=== PATIENT | male | born 1975 | race Caucasian/White ===

== ENCOUNTER 2018-12-17 16:37 | Inpatient (IN) | payer BC ==
[~2018-12-17] VITALS: Ht 188 cm; Wt 118.5 kg
[2018-12-17 17:36] LABS: BASOPHILS % (AUTO) 0.6 % (0.0-2.0); EOSINOPHILS % (AUTO) 4.2 % (1.0-6.0); HEMATOCRIT 45.5 % (41-53); HEMOGLOBIN 15.2 g/dL (13.5-17.5); LYMPHOCYTES # (AUTO) 2.5 K/uL (1.0-4.8); LYMPHOCYTES % (AUTO) 32.9 % (22.0-44.0); MEAN CORPUSCULAR HEMOGLOBIN 31.7 pg (26.0-34.0); MEAN CORPUSCULAR HGB CONC 33.4 G/dL (31.0-37.0); MEAN CORPUSCULAR VOLUME 95 fL (80-100); MONOCYTES # (AUTO) 0.8 K/uL (0.1-1.0); MONOCYTES % (AUTO) 10.2 % (2.0-9.0); NEUTROPHILS # (AUTO) 3.9 K/uL (1.8-7.7); NEUTROPHILS % (AUTO) 52.1 % (40.0-70.0); PLATELET COUNT (AUTO) 216 K/uL (150-450); RED BLOOD CELL COUNT(AUTO) 4.78 MIL/uL (4.50-5.90); RED CELL DISTRIBUTION WIDTH 12.7 % (11.5-14.5)
[2018-12-17 17:45] LABS: ANION GAP 7 mmol/L (8-16); CALCIUM, TOTAL 9.2 mg/dL (8.8-10.5); CARBON DIOXIDE 27 mmol/L (22-29); CHLORIDE 106 mmol/L (98-107); CREATININE 0.86 mg/dL (0.60-1.30); GLOMERULAR FILTR. RATE CALC > 60 mL/min (>60); GLUCOSE,RANDOM 95 mg/dL (70-110); POTASSIUM 4.1 mmol/L (3.5-5.1); SODIUM SERUM 140 mmol/L (136-145); UREA NITROGEN, BLOOD 13 mg/dL (7-18)
[2018-12-17 17:51] LABS: ALANINE AMINOTRANSFERASE 69 U/L (12-78); ALBUMIN 4.2 g/dL (3.4-5.0); ALKALINE PHOSPHATASE 65 U/L (46-116); ASPARTATE AMINOTRANSFERASE 28 U/L (15-37); BILIRUBIN,TOTAL 0.3 mg/dL (0.1-1.0)
[2018-12-17 18:09] LABS: PROTHROMBIN TIME 10.2 SEC (9.4-11.6)
[2018-12-17] MEDS ORDERED: IOVERSOL 320 MG/ML 100 ML VIAL ONE (18:40)
[2018-12-17] MEDS ORDERED: SODIUM CHLORIDE 0.9% 100 ML ONE (18:40)
[2018-12-17] MEDS ORDERED: ONDANSETRON HCL 4 MG/2 ML VIAL IVP PRN ×2 (21:00→22:45)
[2018-12-17] MEDS ORDERED: 0.9% SODIUM CHLORIDE 10 ML SYRINGE IVP PRN ×2 (21:00→22:45)
[2018-12-17] MEDS ORDERED: ACETAMINOPHEN 325 MG TABLET PO PRN ×2 (21:00→22:45)
[2018-12-17] MEDS ORDERED: ZOLPIDEM TARTRATE 5 MG TABLET PO PRN (22:45)
[2018-12-17] MEDS ORDERED: POTASSIUM CHL 10 MEQ/WATER 50 ML IV PRN (22:45)
[2018-12-17] MEDS ORDERED: MAGNESIUM SULFATE 2 GM/WATER 50 ML IV PRN (22:45)
[2018-12-17] MEDS ORDERED: MAGNESIUM SULFATE 4 GM/WATER 100 ML IV PRN (22:45)
[2018-12-17] MEDS ORDERED: SODIUM CHLORIDE 0.9% 1,000 ML IV ONE (22:45)
[2018-12-17] MEDS ORDERED: MAGNESIUM OXIDE 400 MG TABLET PO PRN (22:45)
[2018-12-17] MEDS ORDERED: POTASSIUM CHLORIDE 20 MEQ ER TABLET PO PRN (22:45)
[2018-12-18 04:29] VITALS: BP 132/72
[2018-12-18 07:57] VITALS: BP 109/64
[2018-12-18 11:34] VITALS: BP 116/70
[2018-12-18] MEDS: PANTOPRAZOLE SODIUM 40 MG DR TABLET PO SCH (12:18)
[2018-12-18] MEDS: DOCUSATE SODIUM 100 MG CAPSULE PO SCH ×2 (12:18→20:29)
[2018-12-18] MEDS: ATORVASTATIN CALCIUM 20 MG TABLET PO SCH (14:40)
[2018-12-18] MEDS: HYPROMELLOSE 0.5% 15 ML OPHTHALMIC SOLUTION OU SCH ×3 (14:40→20:29)
[2018-12-18] MEDS: ASPIRIN 81 MG CHEWABLE TABLET PO SCH (14:40)
[2018-12-18] MEDS: ACYCLOVIR 800 MG TABLET PO SCH ×2 (14:40→20:29)
[2018-12-18] MEDS: PredniSONE 20 MG TABLET PO SCH (16:20)
[2018-12-18 18:28] LABS: APPEARANCE,URINE CLEAR (CLEAR); BILIRUBIN,URINE NEGATIVE (NEGATIVE); GLUCOSE, URINE (UA) NEGATIVE (NEGATIVE); KETONES,URINE NEGATIVE (NEGATIVE); LEUKOCYTE ESTERASE ,URINE NEGATIVE (NEGATIVE); NITRATE,URINE NEGATIVE (NEGATIVE); OCCULT BLOOD,URINE NEGATIVE (NEGATIVE); PROTEIN,URINE NEGATIVE (NEGATIVE); UROBILINOGEN,URINE 0.2 mg/dL (<=1.0)
[2018-12-18 18:30] LABS: AMPHET/METH SCREEN,URINE NEGATIVE (NEGATIVE); BARBITURATE SCREEN, URINE NEGATIVE (NEGATIVE); BENZODIAZEPINES SCREEN,URINE NEGATIVE (NEGATIVE); CANNABINOID SCREEN,URINE NEGATIVE (NEGATIVE); COCAINE SCREEN,URINE NEGATIVE (NEGATIVE); METHADONE SCREEN, URINE NEGATIVE (NEGATIVE); OPIATE SCREEN,URINE NEGATIVE (NEGATIVE)
[2018-12-18 18:33] LABS: PHENCYCLIDINE SCREEN,URINE NEGATIVE (NEGATIVE)
[2018-12-18 18:41] LABS: BACTERIA,URINE None Seen /HPF (None Seen); RBC,URINE None Seen /HPF (0-2); SQUAMOUS EPITHELIAL CELL,UR Rare /LPF (None Seen); WBC,URINE None Seen /HPF (0-5)
[2018-12-18 19:39] VITALS: BP 134/79
[2018-12-19 00:19] VITALS: BP 112/64
[2018-12-19 04:59] VITALS: BP 130/77
[2018-12-19] MEDS: HYPROMELLOSE 0.5% 15 ML OPHTHALMIC SOLUTION OU SCH ×2 (05:23→10:22)
[2018-12-19 07:40] LABS: CHOL/HDL RATIO 5.9 (4.2-7.3); THYROID STIMULATING HORMONE 0.84 uIU/mL (0.36-3.74)
[2018-12-19 08:26] VITALS: BP 130/95
[2018-12-19] MEDS: ACYCLOVIR 800 MG TABLET PO SCH (08:40)
[2018-12-19] MEDS: ATORVASTATIN CALCIUM 20 MG TABLET PO SCH (08:41)
[2018-12-19] MEDS: PANTOPRAZOLE SODIUM 40 MG DR TABLET PO SCH (08:41)
[2018-12-19] MEDS: PredniSONE 20 MG TABLET PO SCH (08:41)
[2018-12-19] MEDS: ASPIRIN 81 MG CHEWABLE TABLET PO SCH (08:41)
[2018-12-19] MEDS: DOCUSATE SODIUM 100 MG CAPSULE PO SCH (08:42)
[2018-12-19 11:20] VITALS: BP 133/81
[2018-12-19] MEDS ORDERED: ACYC800T PO (11:48)
[2018-12-19] MEDS ORDERED: PRED20 PO ×2 (11:50→11:52)
[2018-12-19] MEDS ORDERED: PRED10 PO (11:53)
== END 2018-12-19 12:10 | disposition home or self-care (01) | DRG 74 ==
LOC: EMS 16:38 → 5S 22:30
PROVIDERS: ADMIT Internal Medicine; ATTEND Internal Medicine
DX: G51.0 Bell's palsy (principal); E78.5 Hyperlipidemia, unspecified; E66.9 Obesity, unspecified; H57.89 Other specified disorders of eye and adnexa; I65.29 Occlusion and stenosis of unspecified carotid artery; F17.210 Nicotine dependence, cigarettes, uncomplicated; Z68.33 Body mass index [BMI] 33.0-33.9, adult
CPT/HCPCS: 70496; 70544; 70551; 80307; 83735; 84443; 86850; 86900; 86901; 93005; 99291; J7030; J7050